=== PATIENT | female | born 1985 | race Caucasian/White ===

== ENCOUNTER 2023-05-24 08:36 | Outpatient (CLI) | payer OTHER, SELFPAY ==
--- NOTE | 2023-05-24 08:43 | MR_ITS ---
WS: [id number] MRI BRAIN WITH HIGH-RESOLUTION IMAGING THROUGH THE INTERNAL AUDITORY CANALS WITHOUT AND WITH CONTRAST HISTORY: PULSATILE TINNITUS,L EAR/SENSORINEURAL HEARING LOSS, BILAT COMPARISON: None available. TECHNIQUE: Multiplanar, multisequence imaging is performed through the brain. Additional 3 mm imaging performed in multiple planes through the internal auditory canal. Postcontrast imaging with 11 ml's of MultiHance. No acute intracranial hemorrhage, midline shift, edema or mass effect. Normal mack-white matter. No acute or prior infarct. No signal abnormality. Ventricles and extra-axial spaces are normal. No inferior displacement of cerebellar tonsils. Clivus and pituitary gland are normal. Internal and external auditory canals: Unremarkable. Cranial nerves VII and VIII complexes: Unremarkable. No enhancement or mass. Cerebellopontine angles: Normal. Paranasal sinuses: Normal. Mastoid air cells: Normal. Calvarium and scalp: Normal. Visualized skull [place] of [place] and dural venous sinuses demonstrate no abnormality. IMPRESSION: Normal MRI IACs.
--- NOTE | 2023-05-24 08:45 | USCV_ITS ---
Krista Vivar Age: 38 Gender: F : 1985 Exam Date: 05/24/2023 09:23 Ordering Phys: Nikki Figueredo Technologist: CT Exam Location: [facility] Indication: tinnitus, hearing issues, Risk Factors: None Previous Vascular Surgery: None Right Brachial BP: / Left Brachial BP: / Right Left Velocity (cm/s) Spectral Plaque Velocity (cm/s) Spectral Plaque Syst/Diast Broadening Syst/Diast Broadening 96.20/ Prox CCA 78.70 / 22.80 84.60/ 28.70 Mid CCA 71.10 / 23.00 70.20/ 25.10 Distal CCA 62.20 / 23.00 82.30/ 28.30 Prox ICA 60.90 / 19.30 68.80/ 31.30 Mid ICA 70.60 / 37.70 79.00/ 41.70 Distal ICA 82.90 / 41.30 70.30 ECA 62.20 1.20 ICA/CCA 1.30 Antegrade Vertebral Antegrade 35.50/ 7.30 cm/s 72.50/ 32.70 cm/s Tri Subclavian Tri 78.60 79.50 CONCLUSIONS Right ICA stenosis <50%. . Left ICA stenosis <50%. Normal antegrade Doppler flow noted in the right vertebral artery. Normal antegrade Doppler flow noted in the left vertebral artery. Steve Sandoval MD (Electronically Signed) Final Date: 24 May 2023 11:05 S
[2023-05-24] MEDS: gadobenate dimeglumine 20 mL vial IV (11:30)
== END 2023-05-24 08:37 | disposition home or self-care (01) ==
LOC: RAD 08:36
PROVIDERS: Visit Provider Otolaryngology
DX: H93.A2 Pulsatile tinnitus, left ear (principal); H90.3 Sensorineural hearing loss, bilateral; I65.23 Occlusion and stenosis of bilateral carotid arteries
CPT/HCPCS: 70553; 93880; A9577

== ENCOUNTER 2024-01-28 12:21 | Outpatient (CLI) | payer OTHER, SELFPAY ==
--- NOTE | 2024-01-28 12:30 | CT_ITS ---
WS: [id number] CTA HEAD AND NECK TECHNIQUE: Contrast enhanced CTA of the head and neck with coronal and sagittal reformatted images an d maximum intensity projection (MIP) images. NASCET criteria utilized. CLINICAL INFORMATION: PULSATILE TINNITUS, LEFT EAR COMPARISON: None. DLP: 1117.[address] scans at [facility] use at least one of these dose optimization techniques: automated e xposure control; mA and/or kV adjustment per patient size (includes targeted exams where dose is matc hed to clinical indication); or iterative reconstruction. FINDINGS: No evidence intracranial hemorrhage or mass effect. Normal mack-white differentiation. No e xtra-axial fluid collections. RIGHT: RIGHT common carotid artery is patent. No significant RIGHT ICA stenosis. RIGHT ICA is patent to the skull base. LEFT: [LEFT common carotid artery is patent. No significant LEFT ICA stenosis. LEFT ICA is patent to the skull base. INTRACRANIAL CTA: Patent anterior communicating artery. Normal vascularity to the PHAM and MCA territories bilaterally. No evidence of proximal flow-limiting intracranial stenosis. LEFT dominant distal vertebral artery. Basilar artery is patent. Normal vascularity to the [employer] terr itory bilaterally. CT/CT angio headneck* [id number] IMPRESSION: 1. No cervical ICA stenosis. 2. No flow-limiting intracranial stenosis. 3. LEFT dominant vertebral artery. 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 4. No evidence of aberrant ICA
[2024-01-28] MEDS: iohexol 350 mg/mL 500 mL Btl (per mL) IV (12:52)
== END 2024-01-28 12:22 | disposition home or self-care (01) ==
LOC: RAD 12:22
PROVIDERS: Visit Provider Otolaryngology
DX: H93.A2 Pulsatile tinnitus, left ear (principal)
CPT/HCPCS: 70496; 70498